=== PATIENT | female | born 1960 | race Caucasian/White ===

== ENCOUNTER 2016-06-08 02:54 | Observation (INO) | payer MEDICARE ==
[2016-06-08] MEDS ORDERED: ASPIRIN (CHEWABLE) 81 MG TAB PO ONE (03:32)
[2016-06-08] MEDS ORDERED: NITROGLYCERINE 2 % OINTMENT PACK TOP ONE (03:32)
[2016-06-08] MEDS ORDERED: METOPROLOL TARTRATE 25 MG TAB PO ONE (03:32)
[2016-06-08] MEDS ORDERED: Enoxaparin 1 mg per kg per dose SQ ONE (03:33)
--- NOTE | 2016-06-08 03:37 | DIRPT ---
CLINICAL DATA: Sensation of elephant sitting on chest. Initial encounter. EXAM: PORTABLE CHEST 1 VIEW COMPARISON: None. FINDINGS: The lungs are well-aerated. Mild vascular congestion is noted. There is no evidence of focal opacification, pleural effusion or pneumothorax. The cardiomediastinal silhouette is within normal limits. No acute osseous abnormalities are seen. IMPRESSION: Mild vascular congestion noted. Lungs remain grossly clear. Electronically Signed By: René Giron M.D. On: 06/08/2016 03:35
--- NOTE | 2016-06-08 03:41 | EDPRACDOC ---
- History of Present Illness HPI: MD NOTE SEEN AND EXAMINED; PT HAS MULTIPLE RISK FACTORS AND PRESENTS WITH CP. STERNAL WITH RADS TO LEFT CHEST. TIGHTNESS AND HEAVY. NO PREV STRESS OR CATH. RECENTLY MOVED HERE FROM [place]. HAS HX OF COPD AND ON OXYGEN. NO SIG CHANGE IN COUGH. STILL SMOKES. <JoaquinBakari Maki - Last Filed: 06/08/16 04:03> - General Information Information Source: Patient, Family Mode of Arrival: Car - History of Present Illness Onset: SAILOR HPI: C/o sternal CP x 4 days with mild SOB, acute increase on chronic productive cough with yellow sputum and sore throat. Pain is constant, random onset, sometimes at rest and sometimes with exertion, and radiates to left side chest. Pt also c/o lightheadedness and inc urinary freq. Denies fever, N/V/D, chnage in BM. No hx of cardiac hx, no prior stress test or cath. Pt has hx of COPD, HTN , HDL, + smoker. On home O2 at 3L at night. nebs and inhalers have not helped relive CP. Surgical hx = appy, tonsils, and bladder. Chest Pain Location: Reports: Substernal, Left Chest Pain Radiation: Reports: None Symptoms Occur: Reports: Suddenly, At Rest, With light exertion Cardiac Risk Factors: Reports: Smoker, Hyperlipidemia, Hypertension. Denies: Family History Cardiac History of: Reports: None PE Risk Factors: Reports: None Medications within 24 Hours: Reports: None Prehospital Care: Reports: None Pain Came On: Reports: Suddenly Pain Status: Present Now Pain Description: Reports: Crushing Pain Severity: Mild Pain Worsens With: Reports: Nothing Pain Improves With: Reports: Nothing Associated Signs and Symptoms: Reports: SOB <Syed Mendieta - Last Filed: 06/08/16 04:36> - General Information Chief Complaint: Chest Pain Stated Complaint: DIZZINESS, CP Time Seen by Provider: 06/08/16 03:14 Home Medications: Home Medications Acetaminophen 500 mg PO Q4-6H PRN 06/08/16 Albuterol Sulfate [Ventolin Hfa] 1 puff NEB DIR 06/08/16 Bupropion HCl [Bupropion Xl] 150 mg PO BID 06/08/16 Duloxetine [Cymbalta] 60 mg PO DAILY 06/08/16 Fesoterodine Fumarate [Toviaz] 4 mg PO DAILY 06/08/16 Fluticasone/Salmeterol [Advair 250-50] 1 puff PO BID 06/08/16 Furosemide 10 mg PO DAILY 06/08/16 Gabapentin 600 mg PO TID 06/08/16 Montelukast Sodium 10 mg PO HS 06/08/16 Omeprazole [Prilosec] 20 mg PO DAILY 06/08/16 Ranitidine [Zantac] 150 mg PO BID 06/08/16 Allergies/Adverse Reactions: Allergies Allergy/AdvReac Type Severity Reaction Status Date / Time seafood Allergy Rash-Genera Uncoded 06/08/16 03:05 lized ED Past Medical History - History Reviewed Yes Nurses notes reviewed and agree except as marked - Patient Medical History Cardiac History: Reports: Hypertension Respiratory History: Reports: COPD Psychological History: Reports: Depression Surgical History: Reports: Tonsillectomy/Adnoidectomy. Denies: Hysterectomy - Social Medical History Smoking Status: Heavy tobacco smoker (5 or more cigarettes/day or daily pipe/ cigar) <Syed Mendieta - Last Filed: 06/08/16 04:36> EDM Review of Systems - Review of Systems ROS Negative Except as Marked: Yes All systems reviewed and were negative except as marked Respiratory: Shortness of Breath, Sputum Cardiovascular: Chest Pain Genitourinary: Frequency Neurological: Other (lighteadedness) <Syed Mendieta - Last Filed: 06/08/16 04:36> - Physical Exam Last recorded Vital Signs: Last Vital Signs Temp 97.3 F L 06/08/16 02:59 Pulse 77 06/08/16 03:43 Resp 06/08/16 03:43 BP 131/74 06/08/16 03:43 Pulse Ox 97 06/08/16 03:43 Oxygen Pulse Oxygen Saturation 97 O2 Device Nasal Cannula Oxygen Flow Rate 2 Fraction of Inspired Oxygen ( FIO2) <Bakari Nñuez - Last Filed: 06/08/16 04:03> - Physical Exam Constitutional: Alert Oriented to: Time, Person, Place Last recorded Vital Signs: Last Vital Signs Temp 97.3 F L 06/08/16 02:59 Pulse 82 06/08/16 02:59 Resp 06/08/16 02:59 BP 127/69 06/08/16 02:59 Pulse Ox 91 06/08/16 02:59 Oxygen Pulse Oxygen Saturation 91 O2 Device Room Air Oxygen Flow Rate Fraction of Inspired Oxygen ( FIO2) - HEENT Head: Normal Eye Exam: negative: Conjunctival Injection, Scleral Icterus Oropharynx: negative: Drooling TMJ: Normal Nose: No Symptoms Reported Neck: Normal - Respiratory/Cardiovascular Respiratory: Normal - CTA Cardiovascular: Normal - GI Tenderness: Non tender - Musculoskeletal Back: Normal Extremities: Normal - Integumentary Skin: Normal - Neurologic Mood Description: Normal Thought: Coherent Perception: Normal <Syed Mendieta - Last Filed: 06/08/16 04:36> ED Chest Pain Exam - Respiratory/Cardiovascular Respiratory: Normal - CTA Cardiovascular/Chest: Normal Radial Pulse: Normal Pedal Pulse: Normal Edema: negative: 1+, 2+, 3+, 4+, 5, 6 Chest Palpation: Normal <Syed Mendieta - Last Filed: 06/08/16 04:36> - Results 06/08/16 03:30 06/08/16 03:30 <Bakari Nuñez - Last Filed: 06/08/16 04:03> - Action ASA given in the ED: Yes - Results 06/08/16 03:30 06/08/16 03:30 - EKG EKG #1 EKG Time: 03:07 -: Yes EKG interpreted by me Rate: bpm: 80 Rhythm: NSR ST: Normal Comments: no prior ekg on file - Diagnostic Imaging Chest Image interpreted by: Radiologist EXAM: PORTABLE CHEST 1 VIEW COMPARISON: None. FINDINGS: The lungs are well-aerated. Mild vascular congestion is noted. There is no evidence of focal opacification, pleural effusion or pneumothorax. The cardiomediastinal silhouette is within normal limits. No acute osseous abnormalities are seen. IMPRESSION: Mild vascular congestion noted. Lungs remain grossly clear. Electronically Signed By: René Giron M.D. On: 06/08/2016 03:35 <Syed Mendieta - Last Filed: 06/08/16 04:36> - Departure Yes I personally saw and evaluated the patient. Disposition: Admit IP To This Hospital Decision to Admit Time: 04:03 (IKRAM) Decision to admit date: 06/08/16 Decision to admit: from ED <Bakari Nuñez - Last Filed: 06/08/16 04:03> - Departure Education/Counseling Given To: Patient <Syed Mendieta - Last Filed: 06/08/16 04:36> - Departure Condition: Good Final Diagnosis: Angina, Unstable angina Instructions: Chest Pain (ED) Referrals: None,No Provider [NonStaff] - One Week
[2016-06-08 03:43] LABS: AUTOMATED BASOPHIL 1.3 % (0-2); AUTOMATED EOSINOPHIL 5.2 % (0-5); AUTOMATED LYMPH 32.7 % (17-44); AUTOMATED MONOCYTE 9.7 % (3-10); AUTOMATED NEUTROPHIL 51.1 % (45-76); MPV 8.6 fL (7.4-10.4)
[2016-06-08 03:47] LABS: BLOOD UREA NITROGEN 10 MG/DL (7-17); CALCIUM 9.1 MG/DL (8.4-10.2); CALCULATED OSMOLALITY 272 MOs/Kg (270-290); CHLORIDE 100 mEq/L (98-107); GLUCOSE 97 MG/DL (70-99); SODIUM LEVEL 142 mEq/L (137-146); TOTAL PROTEIN 7.5 G/DL (6.3-8.2)
[2016-06-08 03:49] LABS: PARTIAL THROMB. TIME 24.6 SEC (22-35)
[2016-06-08 03:55] LABS: LEUKOCYTES/URINE TRACE (NEGATIVE); NITRITE/URINE NEG (NEGATIVE); RBC/URINE 0-2 (0-5); URINE OCCULT BLOOD NEG (NEG/TRACE)
[2016-06-08] MEDS ORDERED: ENOXAPARIN 80 MG/0.8 ML PFS SQ ONE (04:00)
[2016-06-08] MEDS ORDERED: ACETAMINOPHEN 325 MG/TAB TABLET PO PRN (04:27)
[2016-06-08] MEDS ORDERED: ONDANSETRON HCL 4 MG/2 ML VIAL IV PRN (04:27)
[2016-06-08] MEDS ORDERED: NITROGLYCERINE 0.4 MG TAB SL PRN (04:27)
[2016-06-08] MEDS ORDERED: FLUTICASONE/SALMETEROL 250/50 DISKUS INH SCH ×2 (05:00→09:00)
[2016-06-08] MEDS ORDERED: Pharmacy Order Set Alert SCH (05:00)
[2016-06-08] MEDS ORDERED: ALBUTEROL 6.7 GM MDI INH PRN (05:00)
--- NOTE | 2016-06-08 05:01 | HISTPHYS ---
- Chief Complaint Chest pressure - History of Present Illness This is a 56-year-old female with a history of GERD and depression who was an active smoker is being admitted to the hospital this morning to rule out myocardial infarction. She says that she has been having chest pain with associated chest pressure the left parasternal area of her chest. Has been constant, without any aggravating or alleviating factors, and has worsened gradually over the last 4 days, when it 1st started. No associated cough, nausea, fevers or chills. She does have some associated shortness of breath. She has never had chest pressure or shortness of breath like this before. She has never been evaluated for cardiac disease. - Medical History Cardiac History: Reports: Hypertension Respiratory History: Reports: COPD Psychological History: Reports: Depression - Surgical History Reports: Tonsillectomy/Adnoidectomy. Denies: Hysterectomy - Medictions/Allergies Allergies seafood Allergy (Uncoded 06/08/16 03:05) Rash-Generalized Home Medications Acetaminophen 500 mg PO Q4-6H PRN 06/08/16 Albuterol Sulfate [Ventolin Hfa] 1 puff NEB DIR 06/08/16 Bupropion HCl [Bupropion Xl] 150 mg PO BID 06/08/16 Duloxetine [Cymbalta] 60 mg PO DAILY 06/08/16 Fesoterodine Fumarate [Toviaz] 4 mg PO DAILY 06/08/16 Fluticasone/Salmeterol [Advair 250-50] 1 puff PO BID 06/08/16 Furosemide 10 mg PO DAILY 06/08/16 Gabapentin 600 mg PO TID 06/08/16 Montelukast Sodium 10 mg PO HS 06/08/16 Omeprazole [Prilosec] 20 mg PO DAILY 06/08/16 Ranitidine [Zantac] 150 mg PO BID 06/08/16 - Social History Smoking Status: Heavy tobacco smoker (5 or more cigarettes/day or daily pipe/ cigar) - Review of Systems Constitutional: No Symptoms Reported (No fever, chills, wt loss/gain, fatigue) Eyes: No Symptoms Reported (No blurry vision, visual changes) Respiratory: No Symptoms Reported (No cough,wheezing or shortness of breath) Cardiovascular: No Symptoms Reported (No Chest pain, palpitations) Gastrointestinal: No Symptoms Reported (No abdominal pain, nausea, vomiting, diarrhea or constipation) Genitourinary: No Symptoms Reported (No dysuria) Musculoskeletal:: No Symptoms Reported (No headache, dizzness, seizures or focal weakness) Integumentary: No Symptoms Reported (No rashes or lesions) Hematologic: No Symptoms Reported (No bleeding or easy bruising) Endocrine: No Symptoms Reported (No polyuria) - Physical Exam Vital Signs: Initial Vitals Temperature 97.3 F L 06/08/16 02:59 Pulse Rate 82 06/08/16 02:59 Respiratory Rate 18 06/08/16 02:59 Blood Pressure 127/69 06/08/16 02:59 Pulse Oxygen Saturation 91 06/08/16 02:59 Constitutional: Alert (Awake, Fully oriented, well appearing. No apparent distress) Oriented to: Time, Person, Place - HEENT Head: Normal (normocephalic,atraumatic, trachea midline) Eye: Normal (EOMI, Sclera white) Oropharynx: Normal (moist) Nose: No Symptoms Reported (without discharge or bleeding) Respiratory: Normal - CTA (Clear to auscultation bilaterally, no wheezing,rales or rhonchi. No use of accessory muscles) Cardiovascular: Normal (RRR, no murmurs, rubs or gallops) - GI Palpation: Normal (soft, non distended and nontender) - Musculoskeletal Extremities: Normal (normal tone, no cyanosis or edema) - Integumentary Skin: Normal (no rashes or lesions) - Neurologic Cranial Nerve: Normal (CN II-XII intact) Mood Description: Normal (Fully oriented and appropiate affect) - Focused CV Perfusion Exam Vital Signs: Last Vital Signs Temp 97.3 F L 06/08/16 02:59 Pulse 91 06/08/16 04:50 Resp 23 06/08/16 04:50 BP 124/70 06/08/16 04:50 Pulse Ox 96 06/08/16 04:50 - Lab Results Laboratory Tests 06/08/16 06/08/16 06/08/16 03:30 03:30 03:30 WBC 8.2 Hgb 14.0 Hct 43.9 Plt Count 365 INR 1.0 Potassium 3.1 L BUN 10 Creatinine 0.80 - Diagnostic Findings Chest x-ray with some mild volume overload, but no other acute findings. - Assessment (1) Chest pain R07.9 - CHEST PAIN, UNSPECIFIED Acute Qualifiers: Chest pain type: C Ischemic chest pain type: I Patient being admitted to the observation chest Pain Center to rule out myocardial infarction. Initial troponin is negative. Chest pain order set has been used. Aspirin, beta-haile and Lovenox anticoagulation have been ordered. Patient has been advised to remain NPO this morning, will likely have stress test this morning and she was advised she can be discharged home with instructions to follow up closely with primary care provider if indeed myocardial infarction is ruled out. She has been advised that she should see her primary care provider regarding other potential some causes of her chest pain. All questions were answered to her satisfaction. (2) Depression F32.9 - MAJOR DEPRESSIVE DISORDER, SINGLE EPISODE, UNSPECIFIED Acute Qualifiers: Depression Type: D Major depression recurrence: M Active/Remission status : A Major depression episode severity: M Psychotic features: P Trimester: T Continue home dose of SSRI. (3) GERD (gastroesophageal reflux disease) K21.9 - GASTRO-ESOPHAGEAL REFLUX DISEASE WITHOUT ESOPHAGITIS Acute Qualifiers: Esophagitis presence: E Continue PPI. (4) Tobacco abuse counseling Z71.6 - TOBACCO ABUSE COUNSELING Acute Patient was strongly counseled to completely quit tobacco abuse. She has cut down her smoking significantly, only smokes about 4 or 5 cigars per day now. She is highly motivated to quit. Total Time: 35
[2016-06-08] MEDS: GABAPENTIN 300 MG CAP PO SCH ×2 (05:55→15:24)
[2016-06-08] MEDS ORDERED: PANTOPRAZOLE 40 MG TAB PO SCH (06:00)
[2016-06-08] MEDS ORDERED: Non-Formulary Medication ITEM (Gabapentin [Gabapentin] 600 MG) PO SCH (06:00)
[2016-06-08] MEDS ORDERED: ASPIRIN 325 MG TAB PO SCH (08:00)
[2016-06-08] MEDS ORDERED: BUPROPION HCL 150 MG PO SCH (09:00)
[2016-06-08] MEDS ORDERED: RANITIDINE 150 MG TAB PO SCH (09:00)
[2016-06-08] MEDS ORDERED: BuPROPion 150 MG SR TAB PO SCH (09:00)
[2016-06-08] MEDS ORDERED: FESOTERODINE FUMARATE 4 MG PO SCH (09:00)
[2016-06-08] MEDS ORDERED: METOPROLOL TARTRATE 25 MG TAB PO SCH (09:00)
[2016-06-08] MEDS ORDERED: FUROSEMIDE 20 MG TAB PO SCH (09:00)
[2016-06-08] MEDS ORDERED: DULOXETINE 60 MG CAPSULE PO SCH (09:00)
[2016-06-08] MEDS ORDERED: TOLTERODINE 4 MG LA CAP PO SCH (09:00)
[2016-06-08] MEDS ORDERED: Non-Formulary Medication ITEM (Omeprazole 20 MG) PO SCH (09:00)
[2016-06-08 10:51] VITALS: BMI 27.4
[2016-06-08] MEDS ORDERED: Vaccine Screening Complete SCH (12:00)
[2016-06-08] MEDS ORDERED: REGADENOSON 0.4 MG/5 ML SYRINGE IV ONE (13:00)
[2016-06-08] MEDS ORDERED: SODIUM CHLORIDE 0.9% 10 ML FLUSH FLUSH ONE (13:00)
--- NOTE | 2016-06-08 15:50 | GENMEDPROG ---
Chief Complaint: CHEST PAIN - Physical Examination Vital Signs and I&O: Last Vital Signs Temp 97.6 F 06/08/16 14:18 Pulse 70 06/08/16 15:25 Resp 18 06/08/16 14:18 BP 107/78 06/08/16 14:18 Pulse Ox 93 06/08/16 14:18 Oxygen Pulse Oxygen Saturation 93 O2 Device Nasal Cannula Oxygen Flow Rate 2 Fraction of Inspired Oxygen ( FIO2) Intake & Output 06/05/16 06/06/16 06/07/16 06/08/16 23:59 23:59 23:59 23:59 Output Total 500 Balance -500 Patient's weight 79.605 kg Respiratory: Normal - CTA (Clear to auscultation bilaterally, no wheezing,rales or rhonchi. No use of accessory muscles)
--- NOTE | 2016-06-08 15:51 | CAPUEKG ---
[place], [place] Test Date: 2016-06-08 Pat Name: ALEXANDER LUCERO Department: Room: 452 Gender: Female Social Insurance Administrator: : Requested By: Order Number: Reading MD: Corey Olvera MD Measurements Intervals Ellis Rate: 69 P: 50 CT: 154 QRS: 56 QRSD: 90 T: 60 QT: 430 QTc: 460 Interpretive Statements Normal sinus rhythm with sinus arrhythmia Normal ECG Electronically Signed On 06-08-16 15:51:02 EST by Corey Olvera MD <[id number]> [id number]
--- NOTE | 2016-06-08 15:59 | PCM.STRESS ---
Nuclear stress test (Lexiscan): Indication for procedure: Chest pain. Patient was brought to the stress test room in a fasting state. IV was already inserted. The patient got connected to the quality assurance monitor body. Blood pressure was monitored as well as pulse oximetry. Lexiscan was given during in usual fashion. That was followed by injection of radioisotope. Then patient was monitored for about 5 min. Resting heart rate was 61 beats/ min. Resting blood pressure was 124/82 mm of mercury. Resting EKG showed normal sinus rhythm, normal P interval, normal QRS complex duration morphology, nonspecific ST-T segment changes. EKG during the infusion of Lexiscan and shortly after showed no diagnostic ST-T segment changes. Symptoms noted during the infusion and after include mild nausea. Nuclear assessment: Resting imaging showed mild defect involving apical midportion of the inferior wall. Stress imaging showed mild defect involving apical and mid portion of the inferior wall. Gated imaging revealed normal contractility in all segments. The ejection fraction was normal calculated to be of 62%. Conclusions: 1. No ischemia seen on this scan. 2. Normal gated images. 3. Normal ejection fraction calculated to be of 62%. Comments: Fixed defect involving inferior wall is probably related to diaphragmatic attenuation..
[2016-06-08 16:12] VITALS: BP 111/68; TEMP 97.5
--- NOTE | 2016-06-08 16:46 | PCM.DCS92 ---
- Final/Secondary Discharge Diagnosis (1) Chest pain Acute R07.9 - CHEST PAIN, UNSPECIFIED Present on Admission: Yes precordial pain I R07.2 - Precordial pain Comment: Patient admitted to the [facility] chest Pain Center to rule out myocardial infarction. Serial troponins are negative. Chest pain order set has been used. Aspirin, beta-haile and Lovenox anticoagulation have been ordered. Patient has been advised to remain NPO this morning, will have stress test later this morning and she was advised she can be discharged home with instructions to follow up closely with primary care provider if indeed myocardial infarction is ruled out. She has been advised that she should see her primary care provider regarding other potential some causes of her chest pain. All questions were answered to her satisfaction. (2) Depression Acute F32.9 - MAJOR DEPRESSIVE DISORDER, SINGLE EPISODE, UNSPECIFIED Present on Admission: Yes major depressive disorder single episode in partial remission M P T F32.4 - Major depressive disorder, single episode, in partial remission Comment: Continue home dose of SSRI. (3) GERD (gastroesophageal reflux disease) Acute K21.9 - GASTRO-ESOPHAGEAL REFLUX DISEASE WITHOUT ESOPHAGITIS Present on Admission: Yes esophagitis presence not specified K21.9 - Gastro-esophageal reflux disease without esophagitis Comment: Continue PPI. (4) Tobacco abuse counseling Acute Z71.6 - TOBACCO ABUSE COUNSELING Present on Admission: Yes Comment: Patient was strongly counseled to completely quit tobacco abuse. She has cut down her smoking significantly, only smokes about 4 or 5 cigars per day now. She is highly motivated to quit. Discharge Disposition: Home Discharge Condition: Good Cognitive Discharge Status: Unimpaired Fuctional Discharge Status: Independent Physician Follow up/Referrals: None,No Provider [NonStaff] - One Week Home Medications / New Prescriptions: No Action Albuterol Sulfate [Ventolin Hfa] 2 puff INH Q4H PRN PRN Reason: Shortness Of Breath Fesoterodine Fumarate [Toviaz] 4 mg PO DAILY Bupropion HCl [Bupropion Xl] 150 mg PO BID Omeprazole [Prilosec] 20 mg PO DAILY Acetaminophen 500 mg PO Q4-6H PRN PRN Reason: Pain Gabapentin 600 mg PO TID Montelukast Sodium 10 mg PO HS Ranitidine [Zantac] 150 mg PO BID Furosemide 10 mg PO DAILY Fluticasone/Salmeterol [Advair 250-50] 1 puff PO BID Ergocalciferol (Vitamin D2) [Vitamin D] 50,000 units PO WEEKLY Duloxetine HCl [Cymbalta] 60 mg PO DAILY O2 Device: Nasal Cannula Diet at Discharge: Heart Healthy Activity: As Tolerated Call Office For: Worsening Symptoms Discontinue use of:: Alcohol, All Types of Tobacco - DC Summary Notes Hospital Course Note:: Discharge summary on patient named ALEXANDER LUCERO admitted to [facility] on 06/08/16 by Gavin Lopez MD. Date of discharge is [06/08/16]. Patient admitted to the [facility] chest Pain Center to rule out myocardial infarction. Serial troponins are negative. Chest pain order set has been used. Aspirin, beta-haile and Lovenox anticoagulation have been ordered. Patient has been advised to remain NPO this morning. The patient has had her stress test this morning and there is no evidence of cardiac ischemia. She was advised she can be discharged home with instructions to follow up closely with primary care provider since myocardial infarction is ruled out. She has been advised that she should see her primary care provider regarding other potential some causes of her chest pain. All questions were answered to her satisfaction. Code: [id number] - Physical Exam Vital Signs: Last Vital Signs Temp 97.5 F 06/08/16 16:11 Pulse 76 06/08/16 16:11 Resp 18 06/08/16 16:11 BP 111/68 06/08/16 16:11 Pulse Ox 95 06/08/16 16:11 Oxygen Pulse Oxygen Saturation 95 O2 Device Nasal Cannula Oxygen Flow Rate 2 Fraction of Inspired Oxygen ( FIO2) Constitutional: No apparent distress, Alert (Awake, Fully oriented, well appearing. No apparent distress) Oriented to: Time, Person, Place - HEENT Head: Normal (normocephalic,atraumatic, trachea midline) Eye: Normal (EOMI, Sclera white) Oropharynx: Normal (moist) Tympanic Membrane: Normal ENT EAC: Normal Nose: No Symptoms Reported (without discharge or bleeding) - Respiratory/Cardiovascular Respiratory: Normal - CTA (Clear to auscultation bilaterally, no wheezing,rales or rhonchi. No use of accessory muscles) Cardiovascular: Normal (RRR, no murmurs, rubs or gallops) - GI Auscultation: Normal Palpation: Normal (soft, non distended and nontender) Tenderness: Non tender Sanchez's Sign: Negative Rectal Exam: Deferred - Musculoskeletal Back: Normal Extremities: Normal (normal tone, no cyanosis or edema) - Integumentary Skin: Normal (no rashes or lesions) Lymphatics: Normal - Neurologic Memory Impaired: Normal Motor Function: Normal Cranial Nerve: Normal Mood Description: Normal (Fully oriented and appropiate affect) Thought: Coherent Perception: Normal
[2016-06-08] MEDS ORDERED: POTASSIUM CHLORIDE 20 MEQ/15 ML ORAL SOLN PO ONE (17:30)
[2016-06-08 18:10] VITALS: PULSE 80
[2016-06-08] MEDS ORDERED: MONTELUKAST SODIUM 10 MG TAB PO SCH (21:00)
[2016-06-09] MEDS ORDERED: FLU VACCINE (Afluria) 0.5 ML DOSE IM ONE (08:00)
[2016-06-09] MEDS ORDERED: PNEUMOCOCCAL 0.5 ML VIAL IM ONE (08:00)
== END 2016-06-08 18:12 | disposition home or self-care (01) ==
LOC: ED 02:54 → EDINP 04:27 → PCU 10:05
PROVIDERS: ADMIT Internal Medicine; ATTEND Family Medicine
DX: R07.9 Chest pain, unspecified (principal); F32.9 Major depressive disorder, single episode, unspecified; K21.9 Gastro-esophageal reflux disease without esophagitis; J44.9 Chronic obstructive pulmonary disease, unspecified; Z79.899 Other long term (current) drug therapy; F17.210 Nicotine dependence, cigarettes, uncomplicated; Z71.6 Tobacco abuse counseling; E78.5 Hyperlipidemia, unspecified; R06.02 Shortness of breath
CPT/HCPCS: 36415; 71010; 78452; 80053; 81001; 83880; 84484; 85025; 85610; 85730; 93005; 93017; 94640; 96372; 99285; 99406; A4216; A9270; G0378; J1650; J2785; J3490